=== PATIENT | female | born 1950 | race Caucasian/White ===

== ENCOUNTER → 2019-06-27 | Outpatient (CLI) | payer MEDICARE ==
[~2019-06-27] MED LIST: CATHETER FLUSH 10 ML SYR IV PRN; HOLD METFORMIN - RECEIVED CONTRAST 20 ML VIAL IV SCH; IOHEXOL 350 MG/ML 100 ML (OMNIPAQUE 350) VIAL IV ONE; NS 100 ML (IVPB) BAG IV ONE
[2019-06-27 11:54] LABS: BUN/CREATININE RATIO 15; CREATININE SERUM 0.87 MG/DL (0.60-1.30); GFR ESTIMATED > 60
--- NOTE | 2019-06-27 14:55 | Diagnostic Imaging Report ---
PROCEDURE: CT abdomen and pelvis with contrast. TECHNIQUE: Multiple contiguous axial images were obtained through the abdomen and pelvis after administration of intravenous contrast. Auto Exposure Controls were utilized during the CT exam to meet ALARA standards for radiation dose reduction. INDICATION: Bright red blood per rectum and abdominal cramping. FINDINGS: There is mild basilar pulmonary scarring seen bilaterally. Note is made of coronary artery calcification and mild hiatal hernia. There is low-density throughout the liver indicating steatosis without evidence of focal hepatic or splenic lesion. Gallbladder is surgically absent. No pancreatic, adrenal gland or hydronephrosis is identified. There is an approximately 1 cm exophytic nodule projecting from the lower pole of the left kidney which likely represents a cyst. There is no evidence of free fluid within the abdomen or pelvis. No appendiceal inflammation is identified. There is prominent fatty change at the ileocecal valve. There is no evidence of bowel obstruction. Occasional diverticula are seen scattered throughout the colon most pronounced in the sigmoid portion. There is no evidence of obstruction or surrounding inflammation. Partially opacified urinary bladder is incompletely distended with mild prominence of bladder wall thickness. IMPRESSION: No definite acute abnormality is identified. Note is made of coronary artery disease, bilateral basilar scarring and mild hiatal hernia with 1 cm left renal cyst. Bladder is incompletely evaluated due to incomplete distention. No colonic mass or obstruction is identified. Dictated by: Dictated on workstation # [id number]
== END ==
LOC: RAD FS 10:57
PROVIDERS: ATTEND Nurse Practitioner Family
DX: K44.9 Diaphragmatic hernia without obstruction or gangrene (principal); I25.10 Atherosclerotic heart disease of native coronary artery without angina pectoris; N28.1 Cyst of kidney, acquired; K62.5 Hemorrhage of anus and rectum
CPT/HCPCS: 36415; 74177; 82565; 84520